=== PATIENT | female | born 1975 | race Caucasian/White ===

== ENCOUNTER 2019-05-01 08:00 | Emergency (ER) | payer OTHER, SELFPAY ==
[2019-05-01 08:10] VITALS: BP 151/96; PULSE 100; RESP 18; TEMP 37.2; O2SAT 99
--- NOTE | 2019-05-01 08:17 | ED.GENADULT ---
HPI - General Adult General Chief complaint: Upper Respiratory Infection Stated complaint: fever coughing Time Seen by Provider: 05/01/19 08:17 Source: patient and RN notes reviewed Mode of arrival: ambulatory Limitations: no limitations History of Present Illness HPI narrative: 43-year-old female with complaints of upper respiratory infection symptoms, fatigue, body aches, cough, and for14 days. Nohemy D with little relief. Symptoms increased over the last 24 hours with fever, chills, and sweats. Davida concerned saying she has been exposed to Influenza and Strep over the past week. Dry cough. Rhinorrhea and nasal congestion. Exacerbating factors of smoke exposure. Low-grade fever this morning of 100.5F, orally with intermittent chills and sweats. No nausea, vomiting, and abdominal pain. Denies chest pain, dyspnea, coughing up blood, difficulty swallowing, jaw pain, dental pain, facial pain, foreign body sensation, and rash. Davida denies being , LMP 04/08/19. Some parts of this dictation were generated by voice recognition software and may contain typographical and/or grammatical inaccuracies. Related Data Allergies Allergy/AdvReac Type Severity Reaction Status Date / Time No Known Allergies Allergy Verified 03/10/19 08:55 Review of Systems Review of Systems: Narrative: CONSTITUTIONAL: Complains of fatigue, fever, chills, sweats. EYES: Denies visual changes, redness, discharge. ENT: Complains of rhinorrhea, congestion. Denies sore throat, otalgia. CARDIOVASCULAR: Denies chest pain, palpitations, edema. RESPIRATORY: Denies dyspnea, wheezing. Complains of dry cough. GASTROINTESTINAL: Denies abdominal pain, nausea, vomiting, diarrhea. GENITOURINARY: Denies dysuria, hematuria, abnormal discharge. SKIN: Denies rash or itching. MUSCULOSKELETAL: Denies acute back pain, joint pain. Complains of myalgia. NEUROLOGIC: Denies numbness or focal weakness. PSYCHIATRIC: Denies anxiety or depression. All systems reviewed & are unremarkable except as noted in HPI and below. [facility] Past Medical History Medical History (Updated 05/01/19 @ 08:44 by CAL Mason) No significant past medical history Surgical History Surgical History (Updated 05/01/19 @ 08:31 by CAL Mason) History of tubal ligation Family History Family History (Updated 05/01/19 @ 08:32 by CAL Mason) Father Hypertension Malignant neoplasm of prostate Mother Asthma Sibling Asthma Social History Social History (Updated 05/01/19 @ 08:33 by CAL Mason) Smoking status: Never smoker Second hand tobacco smoke exposure: Yes Alcohol intake: current Alcohol use details: occasional Substance use: never Living arrangements: with family Occupation/Education: occupation Gender identity (if verbalized by the patient): Female Comments At time of signature, agree with nurse past medical, surgical, social, and family history. There is no relevant family history pertinent to the presenting complaint. Exam Narrative: Exam Narrative: GENERAL: This is a well-nourished, well-developed patient, in no apparent distress. Speaks in full sentences and ambulates with steady gait without dyspnea. HEAD: normocephalic, atraumatic. EYES: PERRL. Sclera clear/white. Vision is grossly intact. EARS: External ears normal, auditory canals clear and without drainage, TMs normal without perforation. Hearing grossly intact. NOSE: External nose normal with no obvious nasal discharge, nares with mild redness and enlarged turbinates, clear rhinorrhea. SINUSES: Mild-moderate tenderness upon palpation to maxillary and frontal sinuses. THROAT: Mucous membranes moist, posterior pharynx with PND, mild erythema, no exudate, and normal tonsils. No drainage, no concern for Peritonsillar abscess. No drooling, trismus, or neck swelling. NECK: Neck supple, non-tender without lymphadenopathy, masses or thyromegaly.
== END 2019-05-01 08:45 | disposition home or self-care (01) ==
PROVIDERS: Emergency Provider Nurse Practitioner Family
DX: J01.00 Acute maxillary sinusitis, unspecified (principal)
CPT/HCPCS: 87081; 87804; 87880; 99213; G0463

== ENCOUNTER 2020-01-18 13:45 | Emergency (ER) | payer OTHER, SELFPAY ==
[2020-01-18 14:00] VITALS: BP 159/97; PULSE 106; RESP 20; TEMP 36.6; O2SAT 100
--- NOTE | 2020-01-18 14:02 | ED.GENADULT ---
HPI - General Adult General Chief complaint: Upper Respiratory Infection Stated complaint: Headache/Stuffy Nose Source: patient Mode of arrival: ambulatory Limitations: no limitations History of Present Illness HPI narrative: 44 y/o female. PMH includes: Sinus issues . Presents to the [facility] clinic today with acute complaints of DONAL[place], as well as increased maxillary facial pressure and nasal congestion/discharge for the past 72 hours. Client reports to get sinus infections at least twice a year , and her symptoms feel the same . She states to have had green nasal discharge, and her nares often get all clogged up . She denies fever, chills. No cough, chest pain, dyspnea. No abdominal pain, N/V/D. She reports she does not think her symptoms have anything to do with the Covid . No additional acute c/o upon PE. Related Data Allergies Allergy/AdvReac Type Severity Reaction Status Date / Time No Known Allergies Allergy Verified 03/10/19 08:55 Review of Systems Review of Systems: Narrative: CONSTITUTIONAL: Denies fever, chills, sweats. EYES: Denies visual changes, redness, discharge. ENT: Positive rhinorrhea, congestion. No sore throat, otalgia. CARDIOVASCULAR: Denies chest pain, palpitations, edema. RESPIRATORY: Denies dyspnea, wheezing, cough GASTROINTESTINAL: Denies abdominal pain, nausea, vomiting, diarrhea. GENITOURINARY: Denies dysuria, hematuria, abnormal discharge SKIN: Denies rash or itching. MUSCULOSKELETAL: Denies acute back pain, joint pain, or myalgia. NEUROLOGIC: Denies numbness, or focal weakness. PSYCHIATRIC: Denies anxiety or depression. [facility] Past Medical History Medical History No significant past medical history Surgical History Surgical History History of tubal ligation Family History Family History Father Hypertension Malignant neoplasm of prostate Mother Asthma Sibling Asthma Social History Social History Smoking status: Never smoker Second hand tobacco smoke exposure: Yes Alcohol intake: current Substance use: never Gender identity (if verbalized by the patient): Female Comments At the time of my signature I agree with nursing past medical history, surgical, social, and family history. There is no relevant family history pertinent to the presenting complaint. Exam Narrative: Exam Narrative: GENERAL: This is a well-nourished, well-developed patient, in no apparent distress. HEAD: normocephalic, atraumatic. EYES: PERRL. Sclera clear/white. Vision is grossly intact. EARS: External ears normal, auditory canals clear and without drainage, TMs normal without perforation. Hearing grossly intact. NOSE: With obvious purulent nasal discharge bilateral nares. No obstruction. No deformity. THROAT: Mucous membranes moist. Posterior pharyngeal erythema, without exudate. No pharyngeal swelling or airway concern. NECK: Neck supple, non-tender without lymphadenopathy, masses or thyromegaly. CARDIOVASCULAR: Regular rate and rhythm without murmurs, gallops, or rubs. RESPIRATORY: Clear to auscultation. Breath sounds equal bilaterally. No wheezes, rales, or rhonchi. GASTROINTESTINAL: Abdomen soft, non-tender, nondistended. Bowel sounds are active. No hepato-splenomegaly, or palpable masses. No guarding. SKIN: warm, intact with no suspicious lesions or rash, good texture and turgor. NEURO: awake, alert, and oriented to person, place and time. There were no obvious focal neurologic abnormalities. Steady gait EXTREMITIES: Normal range of motion. No edema. No calf tenderness. Negative Homans sign bilaterally. BACK: Nontender without deformity or crepitance. No flank tenderness. NEURO: Alert and oriented x4. No focal neurological deficits. Course Course [facility]
== END 2020-01-18 14:37 | disposition home or self-care (01) ==
PROVIDERS: Emergency Provider Nurse Practitioner Adult Health; PCP Nurse Practitioner Family
DX: J01.00 Acute maxillary sinusitis, unspecified (principal)
CPT/HCPCS: 99213; G0463

== ENCOUNTER 2020-01-25 09:45 | Emergency (ER) | payer OTHER, SELFPAY ==
[2020-01-25 10:02] VITALS: BP 152/88; PULSE 99; RESP 16; TEMP 37.1; O2SAT 100
--- NOTE | 2020-01-25 10:52 | ED.URI ---
HPI - URI/Sore Throat General Chief Complaint: Upper Respiratory Infection Stated Complaint: lightheaded, slight back pain Time Seen by Provider: 01/25/20 10:53 Source: patient and RN notes reviewed Mode of arrival: ambulatory Limitations: no limitations History of Present Illness HPI Narrative: 44-year-old female who presents to express care with complaints of increase in sinus pressure especially to her right facial area with dizziness this morning. Patient states that she has been on Augmentin and Flonase since January 17 for sinus infection but continues to feel clogged on right side of face with some post nasal drainage. 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 Lungs are clear to auscultation with SAO2 100% on room air. MD elicited complaint: rhinorrhea and nasal congestion Pertinent past history: sinusitis Onset (ago): day(s) (1) Consistency: intermittent Severity: moderate Pain scale (0-10): 6 Description of mucous: clear Able to tolerate fluids by mouth: Yes Exacerbating factors: exertion and changing head position Relieving factors: nothing Context: other (on antibiotics and flonase for sinus infection) Associated symptoms: rhinorrhea, nasal congestion and other (pain to posterior right back under scapula) Treatments prior to arrival: antibiotics (Augmentin) and other (flonase) Related Data Allergies Allergy/AdvReac Type Severity Reaction Status Date / Time No Known Allergies Allergy Verified 01/25/20 09:56 Review of Systems Review of Systems: Narrative: CONSTITUTIONAL: Denies fever, chills, or sweats. EYES: Denies visual changes, redness, or discharge. ENT: Positive rhinorrhea, congestion,no sore throat, or otalgia. CARDIOVASCULAR: Denies chest pain, palpitations, or edema. RESPIRATORY: Denies cough or acute dyspnea. GASTROINTESTINAL: Denies abdominal pain, nausea, vomiting, or diarrhea. GENITOURINARY: Denies dysuria or hematuria. SKIN: Denies rash or itching. MUSCULOSKELETAL: Positive right posterior back pain under scapula area,no other joint pain, or myalgia. NEUROLOGIC: Denies headache, numbness, or weakness. PSYCHIATRIC: Positive history of anxiety or depression. All systems reviewed & are unremarkable except as noted in HPI and below PMFSH Past Medical History Medical History (Updated 01/25/20 @ 11:57 by Piper Mora NP) Bronchitis UTI (urinary tract infection) Surgical History Surgical History History of tubal ligation Family History Family History Father Hypertension Malignant neoplasm of prostate Mother Asthma Sibling Asthma Social History Social History Smoking status: Never smoker Second hand tobacco smoke exposure: Yes Alcohol intake: current Substance use: never Gender identity (if verbalized by the patient): Female Comments At time of signature, agree with nursing past medical, surgical, social and family history. There is no relevant family history pertinent to the presenting complaint Exam Narrative: Exam Narrative: GENERAL: Well-appearing, well-nourished, and in no acute distress. HEAD: Normocephalic, atraumatic. EYES: PERRLA and EOMI. ENT: Nares red with clear rhinorrhea no epistaxis. Mucous membranes moist. Facial pressure to right side of face. TMs normal with good light reflex, throat pink with no edema postnasal drainage noted no tonsillar enlargement NECK: Supple no lymphadenopathy. CHEST: Clear to auscultation. No respiratory distress. SaO2 100% room air HEART: Regular rate and rhythm. No murmur heard. Normal peripheral pulses. ABDOMEN: Soft, nontender, nondistended, normal active bowel sounds. EXTREMITIES: Normal range of motion.
== END 2020-01-25 11:12 | disposition home or self-care (01) ==
PROVIDERS: Emergency Provider Registered Nurse; PCP Nurse Practitioner Family
DX: R42 Dizziness and giddiness (principal); J01.90 Acute sinusitis, unspecified; S29.012A Strain of muscle and tendon of back wall of thorax, initial encounter; X50.9XXA Other and unspecified overexertion or strenuous movements or postures, initial encounter
CPT/HCPCS: 99213; G0463

== ENCOUNTER 2022-09-06 16:09 | Emergency (ER) | payer OTHER, SELFPAY ==
[2022-09-06 16:15] VITALS: BP 130/89; PULSE 116; RESP 20; TEMP 37.3; O2SAT 100
--- NOTE | 2022-09-06 16:18 | ED.NAVMDI ---
HPI - Nausea/Vomiting/Diarrhea General Chief complaint: Nausea/Vomiting/Diarrhea Stated complaint: Nausea, diarreah, stuffy nose Source: patient and RN notes reviewed Mode of arrival: ambulatory History of Present Illness HPI Narrative: 46-year-old female presents to the [facility] today complaining of nausea and diarrhea. Patient stated about 2 days ago she developed nausea have proceeded with diarrhea. Since then the patient has continued to feel nauseous and having diarrhea about 3 times a day. Patient denies any vomiting but she is afraid to eat food because she believes she will vomit. Patient states she is able to drink water without vomiting. Patient also states feeling like she is having chills, congestion, and sore throat. Patient denies any abdominal pain, chest pain, shortness of breath, cough, or fever. 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 Related Data Allergies Allergy/AdvReac Type Severity Reaction Status Date / Time No Known Allergies Allergy Verified 09/06/22 16:26 Review of Systems Review of Systems: CONSTITUTIONAL: Denies fever. Positive for chills EYES: Denies visual changes, redness, or discharge. ENT: Denies otalgia. Positive for sore throat and congestion. CARDIOVASCULAR: Denies chest pain, palpitations, or edema. RESPIRATORY: Denies cough or dyspnea. GASTROINTESTINAL: Denies abdominal pain or vomiting. Positive for nausea and diarrhea GENITOURINARY: Denies dysuria or hematuria. SKIN: Denies rash or itching. MUSCULOSKELETAL: Denies back pain, joint pain, or myalgia. NEUROLOGIC: Denies headache, numbness, or weakness. Pertinent positives per HPI. [facility] Past Medical History Medical History (Updated 09/06/22 @ 16:44 by Kateryna Bruce APRN) Bronchitis UTI (urinary tract infection) Surgical History Surgical History History of tubal ligation Family History Family History Father Hypertension Malignant neoplasm of prostate Mother Asthma Sibling Asthma Social History Social History Smoking status: Never smoker Second hand tobacco smoke exposure: Yes Alcohol intake: current Alcohol use details: occasional Substance use: never Living arrangements: with family Occupation/Education: occupation Gender identity (if verbalized by the patient): Female Comments At the time of my signature, I reviewed and agree with the nursing past medical, surgical, social, and family history. There is no relevant family history pertinent to the patient complaint. Exam Narrative: GENERAL: This is a well-nourished, well-developed patient, in no apparent distress. HEAD: normocephalic, atraumatic. EYES: Sclera clear/white. Vision is grossly intact. EARS: External ears normal, auditory canals clear and without drainage, TMs normal without perforation. Hearing grossly intact. NOSE: External nose normal with no obvious nasal discharge, nares without redness, no rhinorrhea. THROAT: Mucous membranes moist, posterior pharynx clear. NECK: Neck supple, non-tender without lymphadenopathy, masses or thyromegaly. CARDIOVASCULAR: Regular rate and rhythm without murmurs, gallops, or rubs. RESPIRATORY: Clear to auscultation. Breath sounds equal bilaterally. No wheezes, rales, or rhonchi. GASTROINTESTINAL: Abdomen soft, non-tender, nondistended. Bowel sounds are active. No hepato-splenomegaly, or palpable masses. No guarding. SKIN: warm, intact with no suspicious lesions or rash, good texture and turgor. NEURO: awake, alert, and oriented to person, place and time. There were no obvious focal neurologic abnormalities. EXTREMITIES: No clubbing, cyanosis, or edema. No joint tendern
== END 2022-09-06 16:45 | disposition home or self-care (01) ==
PROVIDERS: Emergency Provider Nurse Practitioner Family; PCP Nurse Practitioner Family
DX: B34.9 Viral infection, unspecified (principal)
CPT/HCPCS: 99213; G0463

== ENCOUNTER 2023-02-18 17:24 | Emergency (ER) | payer OTHER, SELFPAY ==
[2023-02-18 17:32] VITALS: BP 133/90; PULSE 107; RESP 18; TEMP 37.3; O2SAT 100
--- NOTE | 2023-02-18 18:08 | ED.URI ---
HPI - URI/Sore Throat General Chief Complaint: Upper Respiratory Infection Stated Complaint: headache/fever/aches Time Seen by Provider: 02/18/23 18:00 Source: patient Mode of arrival: ambulatory Limitations: no limitations History of Present Illness HPI Narrative: 47-year-old female who presents to [facility] with complaints of have generalized body aches,fevers up to 102.1F, headaches for the pst 2 days with feeling hot and then freezing. Patient reports that she has taken Tylenol and Ibuprofen for her symptoms. Patient reports no acute cough or any dyspnea, respirations even and nonlabored with no tachypnea, SAO2 100% on room air. MD elicited complaint: fever, rhinorrhea and other (body aches, headaches, chills and sweats) Onset (ago): day(s) (day 2) Severity: moderate Pain scale (0-10): 7 Able to tolerate fluids by mouth: Yes Treatments prior to arrival: acetaminophen and ibuprofen Related Data Home Medications Medication Instructions Recorded Confirmed No Home Medications 02/18/23 02/18/23 Allergies Allergy/AdvReac Type Severity Reaction Status Date / Time No Known Allergies Allergy Verified 02/18/23 17:32 Review of Systems Review of Systems: CONSTITUTIONAL: Reports malaise, chills, sweats, or fever. EYES: Denies visual changes, redness, or discharge. ENT: Reports rhinorrhea, congestion,no sinus pain, no otalgia and no sore throat. CARDIOVASCULAR: Denies chest pain, palpitations, or edema. RESPIRATORY: Reports occasional cough.? Denies dyspnea. GASTROINTESTINAL: Denies abdominal pain, nausea, vomiting, diarrhea SKIN: Denies rash or itching. MUSCULOSKELETAL:reports myalgia. NEUROLOGIC: reports headache. All systems reviewed & are unremarkable except as noted in HPI and below PMFSH Past Medical History Medical History Bronchitis UTI (urinary tract infection) Surgical History Surgical History History of tubal ligation Family History Family History Father Hypertension Malignant neoplasm of prostate Mother Asthma Sibling Asthma Social History Social History Smoking status: Never smoker Second hand tobacco smoke exposure: Yes Alcohol intake: current Alcohol use details: occasional Substance use: never Living arrangements: with family Occupation/Education: occupation Gender identity (if verbalized by the patient): Female Comments At time of signature, agree with nursing past medical, surgical, social and family history. There is no relevant family history pertinent to the presenting complaint Exam Narrative: GENERAL: Well-appearing, well-nourished, and in no acute distress. HEAD: Normocephalic EYES: PERRLA, conjunctivae clear ENT: Nares clear, turbinates edematous and erythematous, clear discharge. Mucous membranes moist. TM pearly harry with dull light reflex bilaterally; no tragal tenderness. Oropharynx erythematous without lesions. Tonsils not enlarged and without exudate, no drooling, no hoarseness, no trismus, uvula midline.post nasal drainage NECK: Supple. No lymphadenopathy CHEST: Clear to auscultation, breath sounds equal. No wheezing, rhonchi, rales, or stridor. No respiratory distress, speaks in full sentences. coughSAO2 100% on room air HEART: Regular rate and rhythm. No murmur heard. SKIN: Warm, dry, no rash. NEURO: Alert and oriented x3. PSYCH: Normal mood and affect Course Course Emergency Course: Patient is aware of diagnosis, understands and agrees to treatment plan.? Anticipatory guidance given.? Patient agrees to follow-up as directed and is aware of reasons to seek care at the emergency department. Portions of this record may have been created with voice recognition software Level of Care: Exp
== END 2023-02-18 18:30 | disposition home or self-care (01) ==
PROVIDERS: Emergency Provider Registered Nurse; PCP Nurse Practitioner Family
DX: U07.1 COVID-19 (principal)
CPT/HCPCS: 87426; 87804; 99213; C9803; G0463

== ENCOUNTER 2024-01-13 14:38 | Emergency (ER) | payer OTHER, SELFPAY ==
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
[2024-01-13 14:59] VITALS: BP 160/109; PULSE 95; RESP 17; TEMP 37.1; O2SAT 100
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
[2024-01-13 16:30] VITALS: BP 140/90
== END 2024-01-13 16:50 | disposition home or self-care (01) ==
PROVIDERS: Emergency Provider Nurse Practitioner Family; PCP Nurse Practitioner Family
DX: S80.02XA Contusion of left knee, initial encounter (principal); S63.636A Sprain of interphalangeal joint of right little finger, initial encounter; V43.62XA Car passenger injured in collision with other type car in traffic accident, initial encounter
CPT/HCPCS: 29130; 73130; 99213; G0463

== ENCOUNTER 2024-08-28 12:59 | Emergency (ER) | payer OTHER, SELFPAY ==
--- OUTSIDE RECORDS SUMMARY | 2024-08-28 13:06 | XMS_ITS | Clinical Summary ---
Author Organization [facility] Address [address] [place] [address] Care Team Providers Care Piece Dyeing Machine Tender Name Role Phone Elida Batres NP Primary Care Provider [phone] Allergies Active Allergy Reactions Criticality Noted Date Comments Venom-Honey Bee Medications hydrOXYzine (ATARAX) 25 mg tablet Take 1 tablet (25 mg total) by mouth 4 (four) times a day as needed for anxiety. 20 tablet 7 Active Additional Information Patient not taking.Reported on 08/23/2024 hydroCHLOROthia zide (HYDRODIURIL) 25 mg tablet Take 1 tablet (25 mg total) by mouth daily Active EPINEPHrine (EpiPen 2-Cruzito) 0.3 mg/0.3 mL auto-injection syringe Take 1 auto by injection route. 0 Active albuterol HFA (PROVENTIL HFA,VENTOLIN HFA,PROAIR HFA) 90 mcg/actuation inhaler TAKE 2 INHALATIONS NEEDED (4-6 HOURS) Active Active Problems No known active problems Encounters Date Type Department Care Team Description 08/23/2024 9:45 AM CDT Office Visit [facility] [place] [address] [place] [address] Jess Garcia NP Physical exam (Primary Dx) from Last 3 Months Immunizations Immunization Administration Dates Next Due PPD TEST 05/01/2018 Surgical History Surgery Date Site/Laterality Comments TUBAL LIGATION Medical History Medical History Date Comments Heart murmur Fibrocystic breast Family History Medical History Relation Name Comments Breast cancer Maternal Grandmother Relation Name Status Comments Maternal Grandmother Social History Tobacco Use Types Packs/Day Years Used Date Smoking Tobacco: Never Smokeless Tobacco: Never Tobacco Cessation:Counseling Given: Not Answered Personal Safety Answer Date Recorded Have you ever been in or are you currently in a harmful physical or emotional relationship or is someone making you feel afraid or unsafe? 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 Gender Identity Not on file Sexual Orientation Not on file Obstetrics History Para Term AB IAB SAB Ectopic Multiple Livin g Live Births 3 3 3 Date Outcome GA Total Labor Labor/2nd/3rd Weight Sex Type Anes PTL Tasneem A1 A5 Name Clin Term Term Term Last Filed Vital Signs Vital Sign Reading Time Taken Comments Blood Pressure 132/98 08/23/2024 9:44 AM CDT Pulse 122 08/23/2024 9:44 AM CDT Temperature 36.3 C (97.4 F) 08/23/2024 9:44 AM CDT Respiratory Rate 16 08/23/2024 9:44 AM CDT Oxygen Saturation 99% 08/23/2024 9:44 AM CDT Inhaled Oxygen Concentration - - Weight 56.7 kg (125 lb) 08/23/2024 9:44 AM CDT Height 165.1 cm (5' 5) 08/23/2024 9:44 AM CDT Body Mass Index 20.8 08/23/2024 9:44 AM CDT Plan of Treatment Health Maintenance Due Date Last Done Comments Colon Cancer Screening-Colonoscopy 1975 Depression Screening 1975 Hepatitis C Screening 1975 Hepatitis B Screening 11/19/1991 Regular Well Visit/Exam 18-64 11/19/1991 Breast Cancer Screening-Mammogram 04/29/2020 04/30/2019, 08/09/2012 Zoster Vaccine (1 of 2) 11/19/2023 Influenza Vaccine (#1) 2024 DTaP/Tdap/Td Vaccine (2 - Td or Tdap) 02/26/2034 02/27/2024 Pneumococcal vaccine <65 Aged Out No longer eligible based on patient's age to complete this topic Procedures Procedure Name Priority Date/Time Associated Diagnosis Comments SCREENING MAMMOGRAM BILATERAL W MCKENNA Schedule Routine, Read Routine (OP Routine) 04/30/2019 2:05 PM CDT Encounter for screening mammogram for malignant neoplasm of breast from Last 3 Months or Most Recently Relevant to Health Maintenance Results * Screening Mammogram Bilateral W Mckenna (04/30/2019 2:05 PM CDT) Anatomical Region Laterality Modality Breast Bilateral Mammography 05/07/2019 2:27 PM CDT Impressions 05/07/2019 2:53 PM CDT No evidence of malignancy. Follow-up in 1 year with screening mammography is recommended. BI-RADS: 1 - Negative. Electronically signed by: James Em M.D. Narrative 05/07/2019 2:53 PM CDT EXAMINATION: SCREENING MAMMOGRAM BILATERAL W MCKENNA ORDERING HEALTHCARE PROVIDER: CRISTY VIRK HISTORY: Routine screening mammography. COMPARISON: 08/09/2012 through 08/04/2011 TECHNIQUE: CC and MLO views of the bilateral breasts were obtained with digital technique using breast tomosynthesis with C view. Computer aided detection was utilized. FINDINGS: There is scattered fibroglandular tissue There are no suspicious masses, calcifications, or architectural distortion. Cristy Virk MD IMG MAMMO PROCEDURES Fin al Result from Last 3 Months or Most Recently Relevant to Health Maintenance Insurance [employer] Care Teams Piece Dyeing Machine Tender Relationship Specialty Start Date End Date Batres, Elida Batool, HAND WINDER [address] [place] [id number] PCP - General Nurse Practitioner 02/26/24
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
--- OUTSIDE RECORDS SUMMARY | 2024-08-28 13:06 | XMS_ITS | Patient Health Record ---
Author Organization [facility] Address [address] [place] [address] Care Team Providers Care Manager Nicu Name Role Phone JENNIFER GU Primary Care Provider Unavailabl e Allergies No Known Allergies Reason For Referral No Information Social History Tobacco Use: Social History Observation Description Date Details (start date - stop date) Never Smoker NA - NA Tobacco Use/Smoking Question Answer Notes Are you a nonsmoker Plan Of Treatment No Information Insurance Providers Payer Name Payer Address Payer Phone Subscriber Number Group Number Insured Name Patient Relationship to Insured Coverage Start Date Coverage End Date [facility] [employer] [address] [place] [address] [id number] Davida Augustin Self - patient is the insured Medical (General) History Surgical History Surgery Date(Month/Year)
--- OUTSIDE RECORDS SUMMARY | 2024-08-28 13:07 | XMS_ITS | Patient Health Record ---
Author Organization [facility] Address [address] [place] [address] Care Team Providers Care Junior Linux Systems Administrator Name Role Phone DAMIEN JOY Unavailable [phone] DAVIDA TEE Unavailable [phone] B[place] PA Unavailable [phone] Reason For Referral Reason [place] - [place] VISIT - APT 01/13/2024 [facility] Medical [facility] [place] [address] [place] [address] P: Diagnosis 1 Follow up (Z09) Referred Provider Specialty Family Medic ine General Notes CL CrRenaeJeane 1 03/14/2023 01:25:52 PM >Type of service: UC , Is member in [facility] (Y/N):N, If Y, was [facility] offered, Order (Y/N), Ordering Provider: N, Preferred Provider (Y/N): N, Facility/Provider Name: , [facility] [place], [facility] Number:N/A, Provider Address/Phone/Fax: , [address] [place] [address], [phone], Appointment Date/Time: 01/13/2024 , If preferred provider charges over the usual rates, member is willing to pay the amount over fair rate: (Y/N), If N, member is willing to go elsewhere., Notes: MM AWARE TO PRESENT MM ID Referral Priority Routine Reason [place]- UC Visit (Self G uided_ 01/13/2024 @ 3:30PM [facility] / [address] [place] [address] / Diagnosis 1 Encounter to [facility] (Z76.89) Referred Provider Specialty Emergency Me poncho General Notes JOSEFINA Candy Palacio 12/16 03:55:25 PM >1.Type of service: UC Visit (Self Guided_ 01/13/2024 @ 3:30PM, , 2. Is member in [facility] (Y/N): N, , If Y, was [facility] offered N/A, , 2.Order (Y/N), Ordering Provider: , , 3. Preferred Provider (Y/N):, , 4. Facility/Provider Name: (If no, input N/A) [facility] / Dr. Jenifer gonzalez, , 5. NPI Number: (If no, input N/A) , , 6. Provider Address/Phone/Fax: (if none, input (N/A) , , 7. Appointment Date/Time: (if none, input TBD and availability day/time) 01/13/2024 @ 3:30PM, , 8. If preferred provider charges over the usual rates, member is willing to pay the amount over fair rate: (Y/N), , If N, member is willing to go elsewhere., , 9.Notes: MM submitted SCB w/ above details. Called MM- no answer, LVM Referral Priority Routine Encounters Encounter Location Date Provider Diagnosis [facility] [address] [place] [address] 01/13/2024 BARRINGTON PA [facility] [address] [place] [address] 05/15/2024 DAVIDA TEE [facility] [address] [place] [address] 01/13/2024 [facility] [address] ([address]) [place] [address] 05/15/2024 [facility] [address] [place] [address] 03/07/2024 [facility] [address] ([address]) [place] [address] 02/27/2024 [facility] [address] [place] [address] 02/27/2024 DAMIEN JOY [facility] [address] [place] [address] 01/13/2024 DAMIEN JOY Assessments Encounter Date Diagnosis (ICD Code) Assessment Notes Treatment Notes Treatment Clinical Notes Section Notes 05/15/2024 Other Called pt, no answer. Called pt another time, no answer. Unable to leave VM due to full VM box. PCT to send message to pt to call back when available. I did not speak to pt. VBP not completed. Plan Of Treatment No Information Insurance Providers Payer Name Payer Address Payer Phone Subscriber Number Group Number Insured Name Patient Relationship to Insured Coverage Start Date Coverage End Date [facility] [id number] [place] [id number] Davida Augustin Self - patient is the insured 4 5
--- OUTSIDE RECORDS SUMMARY | 2024-08-28 13:07 | XMS_ITS | Clinical Summary ---
Author Organization [facility] Address [address] [place] [address] Phone Care Team Providers Care Central Supply Tech Name Role Phone Batres, Elida WAY, BOOK CLEANER Primary Care Provider [phone] Social History Tobacco Use Types Packs/Day Years Used Date Smoking Tobacco: Never Assessed Comments Unknown Sex and Gender Information Value Date Recorded Sex Assigned at Not on file Legal Sex Female 11:01 PM CDT Gender Identity Not on file Sexual Orientation Not on file Plan of Treatment Health Maintenance Due Date Last Done Comments Hepatitis C Virus (HCV) Screening 1975 TdaP Immunization 1975 Hepatitis B Immunization (1 of 3 - 19+ 3-dose series) 1992 Pap Smear 1994 Cervical Cancer Screening (CCS) 11/19/2003 HPV/Cotest 11/19/2003 Cologuard 2018 Colonoscopy 2018 Colorectal Cancer Screening 2018 Immunochemical Fecal Occult Blood 2018 SARS-COV-2 Immunization ( season) 2023 Pneumococcal Immunization (5 0+ years) (1 of 1 - PCV) 11/19/2023 Zoster Immunization (1 of 2) 11/19/2023 Influenza Immunization (#1) 2024 Respiratory Syncytial Virus (RSV) Immunization (Adult) (1 - 1-dose 75+ series) 2048 Human Papillomavirus (HPV) Immunization Aged Out No longer eligible b ased on patient's age to complete this topic Meningococcal Immunization (ACWY) Aged Out No longer eligible based on patient's age to complete this topic Rotavirus Immunization Aged Out No lo nger eligible based on patient's age to complete this topic [facility] Care Teams Central Supply Tech Relationship Specialty Start Date End Date Gisel, SEAMUS Marrero, BOOK CLEANER [address] [place] [address] PCP - General Family Medicine 11/11/20
--- OUTSIDE RECORDS SUMMARY | 2024-08-28 13:07 | XMS_ITS | Data Portability ---
Author Organization [facility] Address [address] [place] [address] Care Team Providers Care Gas Main Fitter Name Role Phone ELIDA GU Primary Care Provider Unavailabl e Assessment No assessment recorded. Plan of Treatment Reminders Order Date Submit Date Provider Last Modified By Organization Details Last Modified Time Details Appointments None recorded . Lab TSH, ultra-se nsitive, serum 2022 023 [facility], [address], [place], [address], 3 16:26:46 CMP, serum or plasma 2022 023 [place], [address], [address], [place], [address], 3 16:26:46 lipid panel, serum 2022 023 [facility], [address], [place], [address], 3 16:26:46 CBC 2022 023 [facility], [address], [place], [address], 3 16:26:45 Referral None recorded . Procedures suture removal (PROC) 2024 025 carrie Gu, [address], [place], [address], 5 09:04:08 Surgeries None recorded . Imaging XR, hip + pelvis, unilater al, 2 or 3 view [address], 1 [facility] , [place], [address], 3 14:54:03 Medication Orders hydrochl orothiaz maribel [address] [id number], [address], [place], [place], [id number], 5 12:13:33 hydrochl orothiaz maribel 25 mg tablet 2022 023 [facility] #[id number], [address] [place], [address], 5 11:54:34 amoxicil edna 875 mg-potas sium clavulan ate 125 mg tablet 2020 021 [facility] #[id number], [address] [place], [address], 5 11:54:45 Medrol (Cruzito) 4 mg tablets in a dose pack [address]/Pharmacy #[id number], [address] [place], [address], 3 16:02:40 Patient TargetsNo targets recorded. Patient Instructions Encounter Date Encounter Id Patient Instructions Last Modified By Organization Details Last Modified Time 10/02/2020 [id number] Acute Sinusitis: Care Instructions Not available 10/02/2020 13:10:24 Take all antibiotics prescribed to you. If any fever or increase in pain, call/return to office. Not available 10/02/2020 13:10:58 04/26/2022 [id number] A healthy lifestyle: care instructions Not available 04/26/2022 21:58:30 learning about high blood pressure Not available 04/26/2022 16:26:32 Increase intake of fresh fruits, and vegetables. Avoid packaged foods and fast foods. Follow a low salt diet, drink at least 8-10 8oz glasses of water a day, exercise most days of the week. Take all medications as prescribed. Keep appointments with PCP and all specialists. Not available 04/26/2022 22:01:26 Plan pending imaging results. f/u 6 months DWP barriers to care: none Not available 04/26/2022 22:01:50 02/27/2024 [id number] tetanus and diphtheria booster: care instructions Not available 02/27/2024 18:12:42 03/06/2024 [id number] learning about high blood pressure Not available 03/06/2024 12:13:27 Wash with mild soap, pat dry and apply aquaphor to dry skin. Not available 03/06/2024 12:47:38 keep f/u as planned Not available 03/06/2024 12:47:42 03/08/2024 [id number] Wound care as advised. Not available 03/08/2024 14:03:30 keep f/u as planned Not available 03/08/2024 14:03:24 Reason for Referral None Reported. Results Created Date Observation Date Name Description Value Unit Range Abnormal Flag Note LastModifiedBy Organization Detail LastModifiedTime 01/14/20 24 01/13/2024 XR, hand, 3 or more view No observ ation record ed. [email or web address] [facility] [address], [place], [address], 01/17/2024 15:01:41 Result Notes None recorded. Problems Name Problem SNOMED Code Status Onset Date Resolution Date Notes Provider Name and Address Organization Details Recorded Time Liver enzymes level above reference range 355510321 Active 2019 liver enzymes raised, avoid alcohol and tylenol, would also suggest additional monitoring and testing if symptomati c, Elida Gu APN, NEWSPAPER REPORTER-C Attn: Gus g [facility], [place], [address], [facility] 0 13:23:43 Hyperlipid emia 36772410 Active 2019 cholestero l elevated, diet changes advised-re duce fried fatty foods, increase fiber, increase veggies and activity level Elida Gu APN, NEWSPAPER REPORTER-C Attn: Accountin g,[address] [facility], [place], [address], [facility] 0 13:24:10 Overweight 020286599 Active 2020 Elida Gu APN, NEWSPAPER REPORTER-C Attn: Accountin g,[address] [facility], [place], [address], [facility] 1 16:29:45 Essential hypertensi on 22022923 Active 2020 Elida Gu APN, NEWSPAPER REPORTER-C Attn: Darreneugene g,[address] [facility], [place], [address], [facility] 1 16:33:39 Anxiety 15680597 Active Jerri Funez MA [place], [facility] 5 15:17:13 Problem Notes None recorded. Procedures Surgical History Date Name Laterality Status Provider Name and Address Organization Details Recorded Time 5 Suture/Staple removal completed Elida Gu APN, NEWSPAPER REPORTER-C Attn: Accounting,[address] [facility], [place], [address], [facility] 03/08/2024 13:54:57 5 Suture/Staple removal completed Elida Gu APN, NEWSPAPER REPORTER-C Attn: Accounting,[address] [facility], [place], [address], [facility] 03/06/2024 12:12:02 8 Date of Last Pap Smear completed Dorene Ravin [facility] 09/13/2017 14:00:46 3 Most Recent Mammogram completed Jerri Funez MA [facility] 09/25/2014 15:17:13 9 Tubal Ligation completed Jerri Funez MA [facility] 09/25/2014 15:17:13 Imaging Results None recorded. Procedure Notes None recorded. Medical Equipment None Reported. Allergies Allergen ID Allergen Name Allergen Category Reaction Reaction Severity Criticality Documentation Date Start Date Code Code System Note Provider Name and Address Organization Details Recorded Time 900697 wasp venoms environme nt anaphylax is Not available Not available 04/26/2022 [id number] RxNorm Marielle Bacon quirino, [facility] SI 16:02:25 No known drug allergies Medications Name Sig Start Date Stop Date Status Note LastModified by Organization Details LastModified Time amoxicill in 500 mg capsule Take 1 capsule every 8 hours by oral route for 10 days. 10/02 completed Not Available Not Available Not Available citalopra m 40 mg tablet 05/17 completed Not Available Not Available Not Available azithromy bonnie 250 mg tablet TAKE 2 TABLETS BY MOUTH TODAY, THEN TAKE 1 TABLET DAILY FOR 4 DAYS 04/26 completed Not Available Not Available Not Available Tubersol 5 tub. unit/0.1 mL intraderm al injection solution Administ er .1ml interder octavia 04/26 completed Not Available Not Available Not Available clonazepa m 0.5 mg tablet 05/17 completed Not Available Not Available Not Available benzonata te 100 mg capsule TAKE 1 CAPSULE BY MOUTH THREE TIMES A DAY 04/26 completed Not Available Not Available Not Available hydrochlo rothiazid e 25 mg tablet TAKE 1 TABLET BY MOUTH EVERY DAY active Not Available Not Available No t Available ibuprofen 600 mg tablet active Not Available Not Available Not Available methylpre dnisolone 4 mg tablets in a dose pack TAKE 6 TABLETS ON DAY 1 DIRECTED ON PACKAGE AND DECREASE BY 1 TAB EACH DAY FOR A TOTAL OF 6 DAYS 04/26 completed Not Available Not Available Not Available albuterol sulfate HFA 90 mcg/actua tion aerosol inhaler TAKE 2 INHALATI ONS NEEDED (4-6 HOURS) active Not Available Not Available No t Available fluticaso ne propionat e 50 mcg/actua tion nasal spray,escobar pension 1 SQUIRT IN THE NOSTRILS TWICE A DAY 1 SQUIRT IN EACH NOSTRIL TWICE DAILY FOR 14 DAYS 04/26 completed Not Available Not Available Not Available amoxicill in 875 mg-potass ium clavulana te 125 mg tablet TAKE 1 TABLET BY MOUTH EVERY 12 HOURS FOR 10 DAYS 03/06 completed Not Available Not Available Not Available Klonopin 05/17 completed Not Available Not Available Not Available EpiPen 2-Cruzito 0.3 mg/0.3 mL injection , auto-inje ctor Take 1 auto by injectio n route. 2019 active Not Available Not Available Not Avai lable Vitals Date Recorded Heart rate Respiratory rate Body temperature Systolic And Diastolic Provider Name and Address Organization Details Last Updated DateTime 02/27/2024 76 /min 16 /min 97.5 [degF] 148/94 mm[Hg] Nemo Juárez LPN [facility] 5 17:25:43 Date Recorded Body height Body mass index (BMI) Body weight Oxygen saturation Oxygen saturation in Arterial blood by Pulse oximetry Respiratory rate Body temperature Heart rate Systolic And Diastolic Provider Name and Address Organization Details Last Updated DateTime 5 167.64 cm 21.8 kg/m2 37614.9 7 g 99 % 99 % 16 /min 97.5 [degF] 54 /min 146/100 mm[Hg] Marielle Bacon Suzette [facility] 5 11:56:51 Date Recorded Body height Body mass index (BMI) Body weight Oxygen saturation Oxygen saturation in Arterial blood by Pulse oximetry Respiratory rate Body temperature Heart rate Systolic And Diastolic Provider Name and Address Organization Details Last Updated DateTime 5 167.64 cm 22.1 kg/m2 64767.1 5 g 99 % 99 % 16 /min 98 [degF] 70 /min 130/88 mm[Hg] Marielle Bacon Suzette [facility] 5 13:52:21 Date Recorded Body height Body mass index (BMI) Body weight Oxygen saturation Oxygen saturation in Arterial blood by Pulse oximetry Heart rate Respiratory rate Body temperature Systolic And Diastolic Provider Name and Address Organization Details Last Updated DateTime 3 167.64 cm 25.7 kg/m2 62274.1 9 g 96 % 96 % 98 /min 16 /min 97.5 [degF] 130/96 mm[Hg] Marielle Bacon [facility] 3 16:05:55 Date Recorded Body height Provider Name an d Address Organization Details Last Updated DateTime 10/02/2020 167.64 cm Codi Colmenares [place] - [facility] 10/03/19 21 12:57:47 Social History Question Answer Notes LastModified by Organizat ion Details LastModified Time Tobacco Smoking Status Never Smoker Jerri Funez MA [place], [place] [facility] 09/25/2014 15:17:13 Do You Have An Advance Directive? No [email or web address] Information not available 09/06/2017 Are You Blind Or Do You Have Difficulty Seeing? No Glasses [email or web address] Information not available 10/02/2020 Is Blood Transfusion Acceptable In An Emergency? Yes Information not available 09/25/2014 What Is Your Level Of Caffeine Consumption? Moderate Information not available 04/26/2022 How Much Tobacco Do You Chew? None Information not available 09/25/2014 In The 14 Days Before Symptom Onset, Have You Had Close Contact With A Laboratory-confir med COVID-19 While That Case Was Ill? No Information not available 05/30/2019 In The 14 Days Before Symptom Onset, Have You Had Close Contact With A Person Who Is Under Investigation For COVID-19 While That Person Was Ill? No Information not available 05/30/2019 Have You Been To An Area Known To Be High Risk For COVID-19? No Information not available 05/30/2019 Are You Deaf Or Do You Have Serious Difficulty Hearing? No Information not available 05/14/2020 What Type Of Diet Are You Following? REGULAR Watching What She Eats [email or web address] Information not available 04/26/2022 Which Illicit Or Recreational Drugs Have You Used? Hollis henry Information not available 05/17/2016 Education 2 Year College Information not available 09/25/2014 Are There Any Guns Present In Your Home? No Information not available 05/30/2019 Hard Of Hearing Or Deaf In One Or Both Ears? No Information not available 05/30/2019 Legally Blind In One Or Both Eyes? No Information no t available 05/30/2019 Live Alone Or With Others? With Others Information not available 09/25/2014 Marital Status Informatio n not available 05/30/2019 What Was The Date Of Your Most Recent Tobacco Screening? 03/08/2024 Information not available 03/08/2024 How Many Children Do You Have? 3 Information not available 09/25/2014 Performs Monthly Self-breast Exam? No Information no t available 09/25/2014 Do You Use Protection During Sex? No [email or web address] Information not available 05/17/2016 What Is Your Relationship Status? Information not available 09/25/2014 Do You Use Your Seat Belt Or Car Seat Routinely? Yes Information not available 05/14/2020 Seat Belts Used Routinely Yes Information not available 09/25/2014 Are You Sexually Active? Yes Information not available 09/25/2014 Smoke Alarm In Home Yes Information not available 05/30/2019 Do You Have Smoke And Carbon Monoxide Detectors In Your Home? Yes Information not available 05/14/2020 Are You Passively Exposed To Smoke? No Information no t available 05/14/2020 How Much Tobacco Do You Smoke? No Information not available 09/25/2014 General Stress Level Low Information not available 05/30/2019 Do You Use Sunscreen Routinely? No Information not available 09/25/2014 Has Tobacco Cessation Counseling Been Provided? Yes [email or web address] Information not available 04/26/2022 On What Date Was Tobacco Cessation Counseling Provided? 03/08/2024 Information not available 03/08/2024 Sex: Female Functional Status Question Answer Note LastModified by Organizat ion Details LastModified Time Do you use any illicit or recreational drugs? No Information not available 05/14/2020 Do you or have you ever used any other forms of tobacco or nicotine? No Information not available 05/14/2020 What is your level of alcohol consumption? Occasional Information not available 09/25/2014 Do you or have you ever used smokeless tobacco? Never used smokeless tobacco [email or web address] Information not available 04/25/2019 Are you currently employed? Yes Information not available 09/25/2014 Are you able to care for yourself? 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 Never used electronic cigarettes Information not available 04/25/2019 What is your exercise level? Moderate [email or web address] Information not available 04/26/2022 Mental Status Question Answer Note LastModified by Organization D etails LastModified Time Do you feel stressed (tense, restless, nervous, or anxious, or unable to sleep at night)? [id number] Information not available 05/14/2020 Family History Relationship Description Onset Age of this Age Resolved Age Notes LastModified by Organization Details LastModified Time Father Hypertensive disorder [email or web address] Not available 2014 17:16:49 Father Hypercholest erolemia rreiter Not available 2014 17:16:49 Father Malignant neoplasm of prostate [email or web address] Not available 04/24 15:49:54 Paternal Grandfather Myocardial infarction [email or web address] Not available 10/02 17:16:49 Paternal Grandmother Hypercholest erolemia rreiter Not available 2014 17:16:49 Paternal Grandmother Hypercholest erolemia rreiter Not available 2014 17:16:49 Maternal Grandmother Malignant neoplasm of ovary rreiter Not available 2014 17:16:49 Maternal Grandmother Malignant tumor of breast rreiter Not available 2014 17:16:49 Maternal Grandmother Hypertensive disorder rreiter Not available 2014 17:16:49 Brother Hypertensive disorder rreiter Not available 2014 17:16:49 Mother Hypertensive disorder [email or web address] Not available 2016 17:04:08 Medical History Condition Response Coronary Artery Disease N Other N Atrial Fibrillation N High Blood Pressure Y Breast Cancer N Lung Disease N Depression N COPD N Blood Clots N Breast Problem N Anesthesia Complications N Headaches/Migraines N Anxiety Disorder Y Muscle, Joint, or Bone Problems N Arthritis N Infertility N Polyps N Acid Reflux (GERD) N Cancer N Stroke N ADHD N Endometriosis N High Cholesterol N Liver Disease N Fibromyalgia N Schizophrenia N Headaches N Kidney Disease N Heart Problems N Thyroid Problems N Kidney or Bladder Problems N GI Problems N Acne N Eating Disorder N Skin Problems N Anemia N Heart Attack (SD) N Diabetes N Ovarian Cancer N Blood Transfusions N Seizures/Epilepsy N Abuse/Domestic Violence N Asthma N Allergies N Substance Abuse N Hepatitis N Heart Disease N Pre-Eclampsia N Hypertension N Heart Failure N Osteoporosis N Gynecological History Statement/Question Response Abnormal Pap N Flow Moderate Date of LMP 05/15/2021 On BCP's at Conception? N STIs/STDs N HPV Vaccine N Most Recent Mammogram 08/09/2012 Age at Menarche 11 Current Control Method Tubal Ligat ion Age at First Child 18 Frequency of Cycle (Q days) 30 Sexually Active? Y Menses Monthly Y Date of Last Pap Smear 09/06/2017 Sexual Problems? N LMP Approximate Obstetrics History GPAL:G 4 P 3 0 1 3 Type Value Multiple Births 0 Full Term 3 Induced 0 Spontaneous 1 Premature 0 Living 3 Ectopics 0 Total 4 Immunizations Vaccine Type Date Status Note Provider Name and Address Organization Details Recorded Time Influenza, split virus, quadrivalent, preservative 01/16/20 20 cancelled patient objection Elida Gu APN, NEWSPAPER REPORTER-C Attn: Accounting,[address] [facility], [place], [address], [facility] 01/16/2020 14:18:15 Tdap 02/26/19 25 completed Codi Colmenares [place], [place] [facility] 02/27/2024 17:56:50 Past Encounters Encounter ID Performer Location Encounter Start Date Encounter Closed Date Diagnosis/Indication Diagnosis SNOMED-CT Code Diagnosis ICD10 Code Diagnosis Note [id number] MD Tami Carpio (BOOM PUMP OPERATOR) [address] [place] [address] 09/25/2014 14:58:47 09/25/2014 16:04:12 Gynecologic examination 02773378 Normal female exam. Last pap done 07/31/12 was normal with negative hr-HPV. Therefore, no pap needed. Venereal d isease screening 011873525 RTO one week for results. Screening for malignant neoplasm of breast 394925768 [id number] MD Tami Carpio (BOOM PUMP OPERATOR) [address] [place] [address] 10/02/2014 17:04:08 10/03/2014 15:38:42 Gynecologic examination 75406561 Cholestero l profile was excellent, dwp. Glucose and thyroid were normal, dwp. RTO PRN + 1yr. Venereal d isease screening 053520039 Vaginal culture was negative for GC, Chlam, TV, yeast, and BV, dwp. STD panel was also completely negative. Individual tests d/w pt. [id number] MD Olga Carpiohalto (BOOM PUMP OPERATOR) [address] [place] [address] 05/17/2016 16:54:50 05/19/2016 09:45:10 Gynecologic examination 42807848 Z01.419 Last pap done 08/02/12 was negative with negative hr-HPV. Therefore, no pap needed. Venereal d isease screening 499686304 Z11.3 RTO one week for results. Screening for malignant neoplasm of breast 729901418 Z12.31 [id number] MD Olga Carpiohalto (BOOM PUMP OPERATOR) [address] [place] [address] 05/26/2016 17:27:44 06/11/2016 09:51:48 Venereal disease screening 382269468 Z11.3 Vaginal culture was negative for gonorrhea, chlamydia, and trichomona s, dwp. STD panel was also completely negative. Individual test results dwp. [id number] MD Tami Carpio (BOOM PUMP OPERATOR) [address] [place] [address] 09/06/2017 13:47:51 09/09/2017 09:34:22 Gynecologic examination 23526567 Z01.419 Last pap done 08/02/12 was negative with negative hr-HPV. Pap done. Venereal d isease screening 488865754 Z11.3 RTO one week for results. Screening for malignant neoplasm of breast 797553610 Z12.31 Positive s creening for depression on PHQ-9 (Patient Health Questionnaire 9) 3031800310 19854 Z13.89 Pt. does feel she would benefit from seeing a psychiatri st. Referral generated. Several months to get in to see a psychiatri st discussed. Option of walking in to [facility] discussed. Pt. knows of [facility] and its location. She will do that if needed. [id number] [facility] [address] [place] [address] 09/13/2017 13:56:57 09/15/2017 11:51:03 Gynecologic examination 55677895 Z01.419 Pap done 09/06/17 was negative with negative hr-HPV, dwp. Venereal d isease screening 428306848 Z11.3 Vaginal culture was negative for gonorrhea, chlamydia, and trichomona s, dwp. STD panel was also completely negative. Individual test results dwp. [id number] MD Olga Carpiohalto (BOOM PUMP OPERATOR) [address] [place] [address] 04/25/2019 15:18:51 04/26/2019 09:08:05 Gynecologic examination 06176065 Z01.419 Last pap done 09/06/17 was negative with negative hr-HPV. Therefore, no pap needed. Venereal d isease screening 006883897 Z11.3 RTO one week for results. Screening for malignant neoplasm of breast 130141180 Z12.31 Last mammogram 2012. Mammogram ordered. [id number] [facility] [address] [place] [address] 05/07/2019 14:08:44 05/08/2019 10:19:53 Venereal disease screening 688226786 Z11.3 Vaginal culture was negative for gonorrhea, chlamydia, and trichomona s, dwp. STD panel was also completely negative. Individual test results dwp. Screening for malignant neoplasm of breast 721576091 Z12.31 Mammogram done 04/30/19. Results not in chart and pt. has not received any communicat ion about the results. Will obtain result and call pt., dwp. [id number] MD Tami Tamez (Adult Med) [address] [place] [address] 05/30/2019 11:44:55 06/05/2019 10:40:30 Adult health examination 253805867 Z00.01 Encouraged routine SENIOR SERVICE AIDE, vision, dental exams, well balanced diet. Allergic r eaction to insect bite 590035487 T78.40XD allergy as child, has not been stung since but needs epi pen rx Prehypertension 31784534 9 R03.0 last vitals at ob/gyne bp elevated, encouraged pt to check, will also screen at in office visit in fall or sooner if needed [id number] MD Tami Tamez (Adult Med) [address] [place] [address] 01/16/2020 08:37:50 01/17/2020 14:59:36 Hyperlipidemia 23678075 E78.5 cholestero l is elevated, dwp diet changes advised-re duce fried fatty foods, increase fiber, increase veggies and activity level Influenza vaccination declined 993489351 Z28.21 Prehypertension 75143606 9 R03.0 last vitals at ob/gyne bp elevated, encouraged pt to check, will also screen at next in office visit or sooner if needed, advised checking at home [id number] MD Tami Tamez (Adult Med) [address] [place] [address] 05/14/2020 15:27:10 05/15/2020 10:40:37 Elevated blood-pressure reading without diagnosis of hypertension 992273504 R03.0 BP in pre-hypert ensive range, dwp risk, reducing salt and increasing exercise check bp when able History an d physical examination, pre-employment 110915383 Z02.1 form completed, will hold pending ppd results Tuberculos is screening 431341605 Z11.1 Overweight 612563658 E66 .3 advised low fat, low cholestero l diet, regular exercise and weight reduction. [id number] MD Tami Tamez (Adult Med) [address] [place] [address] 06/12/2020 15:46:43 06/13/2020 08:19:35 Overweight 110811574 E66.3 advised low fat, low cholestero l diet, regular exercise and weight reduction. Essential hypertension 08647326 I10 remains elevated, will start hctz and order cuff for home use [id number] Elida Gu APN, BALJINDER Garrett (Adult Med) [address] [place] [address] 10/02/2020 10:20:18 10/06/2020 15:56:08 Acute sinusitis 06745515 J01.90 sinus pressure with purulent drainage, start augmentin bid, medrol dose pack as well, [id number] MD Tami Tamez (Adult Med) [address] [facility] [place] [address] 04/26/2022 15:50:55 04/29/2022 17:26:14 Adult health examination 555110680 Z00.01 Encouraged routine SENIOR SERVICE AIDE, vision, dental exams, well balanced diet. Essential hypertension 60832997 I10 remains elevated, will start hctz- pt ran out and never requested refills or has f/u, -resume medication Pain of le ft hip joint 0722478079 53498 M25.552 since fall 6 months ago, pain to left side only, will get xray, cont otc pain relief Overweight 845757302 E66 .3 advised low fat, low cholestero l diet, regular exercise and weight reduction. [id number] MD Tami Tamez (Adult Med) [address] [place] [address] 02/27/2024 16:51:19 03/02/2024 12:46:32 Administration of diphtheria, pertussis, and tetanus vaccine [id number] Z23 [id number] MD Tami Tamez (Adult Med) [address] [place] [address] 03/06/2024 11:46:58 03/13/2024 11:10:24 Essential hypertension 85199471 I10 remains elevated, will start hctz- pt ran out and never requested refills or had f/u, -resume medication Removal of suture [id number] 01 Z48.02 8.5 sutures removed, one tiny knot unable to remove on index finger, pt will return in 2 days to have removed, advised skin care Puncture w ound of skin [id number] T14.8XXA left index and middle fingers, day 10 now;suture s intact, no redness or drainage from wounds Dog bite of hand [id number] 06 S61.452A tdap given last week in office here as ER did not give [id number] MD Tami Tamez (Adult Med) [address] [place] [address] 03/08/2024 13:42:01 03/13/2024 12:22:58 Removal of suture [id number] Z48.02 8 sutures removed, one tiny knot unable to remove on index finger, pt will return in 2 days to have removed, advised skin care update- last suture removed without issue Health Concerns Section Related Observation LastModified by Organization Detai ls LastModified Time None Recorded Concern Status LastModified by Organization Details LastModified Time None Recorded Advance Directives Directive N: Payers Insurance Date Sequence Insurance Name Policy Number Policy Riggins Covered Member ID Riggins Member ID Guarantor Name 05/07/2019 SLIDING FEE SCHEDULE - DISCOUNT Davida Null 01/16/2020 1 *SELF PAY* Adeola marroquin Null 02/27/2024 [facility] (MEDICAID HMO) [id number] Davida Null [id number] Davida Null 02/27/2024 1 [facility] Davida Null [id number] Davida Null 04/26/2022 SLIDING FEE SCHEDULE - DISCOUNT Davida Null 01/16/2020 2 *SELF PAY* Adeola marroquin Null 02/27/2024 1 [facility] (MEDICAID HMO) Davida Null [id number] Davida Null 02/27/2024 1 [employer] [facility] [place] [facility] ON OR AFTER 01/15/2020 (MEDICAID REPLACEMENT - HMO) Davida Null [id number] Davida Null 02/27/2024 1 [facility] PRIOR TO 08/14/2020 (MEDICAID REPLACEMENT - HMO) Davida Null [id number] Davida Null 02/27/2024 1 [place] [id number] Davida Null [id number] Davida Null Notes Date Note Type Note Provider Name and Address Organization Details Recorded Time 10/02/2020 text/html Sinusitis/Allerg yRe ported bypatient.Associate d Symptoms:no fever; no weight loss; no hemoptysis; no hematemesis; no difficulty breathing; no feeling of strangulation; no nausea or vomiting; no facial pain; no sore throat; not constantly clearing the throat; no nasal discharge; no ear fullness; no nasal itching; no eye itching; no pain behind the eyes; no skin itching;headache cheek;sinus pain nasal;thick phlegm in throat;nasal discharge;nasal passage blockage right Onset/Timing:recurr ing; worse in pm; occurs during particular seasons of the year ; initially started 6months ago; progressively worse over last 1months Quality:no pain; no itching; minimal discomfort Duration:symptoms usually last 2 weeks; occurs sporadically; had 1 sinus infections treated with antibiotics in the last year Context:no recent upper respiratory infection; no recent sick contacts; not worse around dust; not worse around molds; not worse with environmental exposure; not worse when mowing grass; not worse with certain foods; not worse with odors;worse with seasonal allergen exposure Risk Factors:no history of smoking; no history of asthma;family history of allergies Alleviating factors:relief with antibiotics; relief with nasal steroidNotes:pt has been congested and it's been worse over the past month, pt is experiencing green mucus from Rt side Elida Gu APN, CAL-C Attn: [address] [place], [address], [facility] 10/02/2020 13:48:20 04/26/2022 text/html work physical. 6 months pt states she was walking her dog and her dog took off and drug her and she landed on her left side. since then she's had pain and sometimes pain shoots down the whole leg; Elida Gu APN, CAL-C Attn: [address] [place], [address], [facility] 04/26/2022 22:04:55 02/27/2024 text/html Pt here for Tdap after sustaining dog bite and being treated in the ER 2 days ago Codi Colmenares MA [place], [place] - [facility] 02/27/2024 17:57:12 03/06/2024 text/html suture removal. got bit by her own dog while trying to feed them treats.had sutures in left middle finger and index. all together 9 stitches. Elida uG, REGULATORY AGENCY DIRECTOR, NEWSPAPER REPORTER-C Attn: Accounting[address], [place], [address], [facility] 03/06/2024 12:48:15 03/08/2024 text/html pt here to have remaining suture removed,no c/o Elida Gu, REGULATORY AGENCY DIRECTOR, NEWSPAPER REPORTER-C Attn: Account[address], [place], [address], [facility] 03/08/2024 14:03:35 OBGyn Episode Ob Episode Information Episode Created Date Number of Fetuses Patient Bloodtype Patient rh Status Prepregnancy Weight lbs Domestic Partner Domestic Partner Phone Father Name Java Web Architect Status 09/26/19 15 1 CLOSED Fetus Data First Name Last Name Admitted to NICU Weight (g) Sex Living Outcome Pediatric Complications Fetus ID Race Codes Race Delivery Type 4055.11 248 M Full Term [id number] Vaginal Kevin Calculation Initial Kevin Date Initial Exam Date Initial Exam Provider Initial Ultrasound Date Last Menstrual Period Date Ultra Sound Weeks Gestation 0 Eighteen To Twenty Week Kevin Update Ultra Sound Date Fundal Height At Umbil Quickening Date Ultra Sound Latest Weeks Gestation Final Kevin Confirmed By Final Kevin Confirmed Date Final Kevin Date Ultra Sound Latest Days Gestation 0 0 Menstrual History Last Menstrual Date Menses Monthly On Bcp Conception Prior Menses Frequency Hcg Plus Date Menarche Onset Age Delivery Information Delivery Date Delivery Type Labor Anesthesia Weeks Gestation Incision Type Labor Labor Length Hrs Delivered By Post Complications Tubal Sterilization Discharge Date Comments 9 Discharge Information Feeding Method Contraceptive Method Maternal HG B and HCT Levels Ob Episode Information Episode Created Date Number of Fetuses Patient Bloodtype Patient rh Status Prepregnancy Weight lbs Domestic Partner Domestic Partner Phone Father Name Java Web Architect Status 09/26/19 15 1 CLOSED Fetus Data First Name Last Name Admitted to NICU Weight (g) Sex Living Outcome Pediatric Complications Fetus ID Race Codes Race Delivery Type 3655.95 152 F Full Term [id number] Vaginal Kevin Calculation Initial Kevin Date Initial Exam Date Initial Exam Provider Initial Ultrasound Date Last Menstrual Period Date Ultra Sound Weeks Gestation 0 Eighteen To Twenty Week Kevin Update Ultra Sound Date Fundal Height At Umbil Quickening Date Ultra Sound Latest Weeks Gestation Final Kevin Confirmed By Final Kevin Confirmed Date Final Kevin Date Ultra Sound Latest Days Gestation 0 0 Menstrual History Last Menstrual Date Menses Monthly On Bcp Conception Prior Menses Frequency Hcg Plus Date Menarche Onset Age Delivery Information Delivery Date Delivery Type Labor Anesthesia Weeks Gestation Incision Type Labor Labor Length Hrs Delivered By Post Complications Tubal Sterilization Discharge Date Comments 5 Discharge Information Feeding Method Contraceptive Method Maternal HG B and HCT Levels Ob Episode Information Episode Created Date Number of Fetuses Patient Bloodtype Patient rh Status Prepregnancy Weight lbs Domestic Partner Domestic Partner Phone Father Name Java Web Architect Status 09/26/19 15 1 CLOSED Fetus Data First Name Last Name Admitted to NICU Weight (g) Sex Living Outcome Pediatric Complications Fetus ID Race Codes Race Delivery Type 3714.91 848 F Full Term [id number] Vaginal Kevin Calculation Initial Kevin Date Initial Exam Date Initial Exam Provider Initial Ultrasound Date Last Menstrual Period Date Ultra Sound Weeks Gestation 0 Eighteen To Twenty Week Kevin Update Ultra Sound Date Fundal Height At Umbil Quickening Date Ultra Sound Latest Weeks Gestation Final Kevin Confirmed By Final Kevin Confirmed Date Final Kevin Date Ultra Sound Latest Days Gestation 0 0 Menstrual History Last Menstrual Date Menses Monthly On Bcp Conception Prior Menses Frequency Hcg Plus Date Menarche Onset Age Delivery Information Delivery Date Delivery Type Labor Anesthesia Weeks Gestation Incision Type Labor Labor Length Hrs Delivered By Post Complications Tubal Sterilization Discharge Date Comments 8 Discharge Information Feeding Method Contraceptive Method Maternal HG B and HCT Levels
[2024-08-28 13:16] VITALS: BP 128/88; PULSE 143; RESP 20; TEMP 37.1; O2SAT 100
--- NOTE | 2024-08-28 13:30 | ED.NAVMDI ---
HPI - Nausea/Vomiting/Diarrhea General Chief complaint: Nausea/Vomiting/Diarrhea Stated complaint: Vomiting/Chills/Headache/Dizziness Time Seen by Provider: 08/28/24 13:20 Source: patient and RN notes reviewed Mode of arrival: ambulatory Limitations: no limitations History of Present Illness HPI Narrative: 48-year-old female Presents Express Care complaining of nausea, vomiting, diarrhea for 2 days. Patient denies any abdominal pain, fevers, body aches, chills. Patient last vomited approximately 2-3 hours ago. Patient has been able to keep some fluids down since vomiting Patient reports brown watery diarrhea. Patient denies any blood or mucus in stools. Patient has not tried any [id number] for relief. Patient denies recent travel outside the country. Patient also reports being dizzy and lightheaded today. Patient feels like her heart is racing as well. Patient denies any significant past medical history. Related Data Home Medications ?Medication ?Instructions ?Recorded ?Confirmed ?Last Taken ?Type No Home Medications 02/18/23 08/28/24 Unknown History Allergies Allergy/AdvReac Type Severity Reaction Status Date / Time No Known Allergies Allergy Verified 08/28/24 13:16 Review of Systems Review of Systems: CONSTITUTIONAL: Denies fever, chills, body aches, or sweats. EYES: Denies visual changes, redness, or discharge. ENT: Denies rhinorrhea, congestion, sore throat, or otalgia. CARDIOVASCULAR: Denies chest pain, palpitations, or edema. Positive for dizziness and lightheadedness. RESPIRATORY: Denies cough or dyspnea. GASTROINTESTINAL: Denies abdominal pain, bloody stools, hematochezia. Positive for nausea, vomiting, or diarrhea. GENITOURINARY: Denies dysuria or hematuria. SKIN: Denies rash or itching. MUSCULOSKELETAL: Denies back pain, joint pain, or myalgia. NEUROLOGIC: Denies headache, loss of consciousness, numbness, or weakness. PSYCHIATRIC: Denies anxiety or depression. All other systems reviewed are negative, except as documented in HPI. [facility] Past Medical History Medical History UTI (urinary tract infection) Bronchitis Surgical History Surgical History History of tubal ligation Family History Family History Father Hypertension Malignant neoplasm of prostate Mother Asthma Sibling Asthma Social History Social History Smoking status: Never smoker Second hand tobacco smoke exposure: Yes Alcohol intake: current Alcohol use details: occasional Substance use: never Living arrangements: with family Occupation/Education: occupation Gender identity (if verbalized by the patient): Female Exam Narrative: GENERAL: This is a well-nourished, well-developed adult, in no apparent distress. They are non ill-appearing, nontoxic appearing. HEAD: normocephalic, atraumatic. EYES: Sclera clear/white. Vision is grossly intact. Conjunctiva normal bilaterally. Extraocular movements intact. EARS: External ears normal, Hearing grossly intact. NOSE: External nose normal THROAT: Mucous membranes are dry. NECK: Normal range of motion CARDIOVASCULAR: Tachycardic rate and rhythm. Systolic murmur is heard at the right upper sternal border 2/6. No clicks, gallops, rubs. RESPIRATORY: Respiratory rate normal, respiratory effort nonlabored, no respiratory distress GASTROINTESTINAL: Abdomen soft, flat, non-tender, nondistended. Bowel sounds are hyperactive. No hepato-splenomegaly, or palpable masses. No guarding or rigidity. No rebound tenderness. SKIN: warm, Dry, intact with no suspicious lesions or rash, good texture and turgor. NEURO: awake, alert, and oriented to person, place and time. There were no obvious focal neurologic abnormalities. EXTREMITIES: No joint tenderness, effusion, or edema noted. BACK: Nontender without deformity. Course Course Emergency Course: Portions of this record may have been created with voice recognition software Level of Care: Express Care Visit Vital Signs Vital signs: Vital Signs Temperature 98.8 F 08/28/24 13:16 Pulse Rate 143 H 08/28/24 13:16 Respiratory Rate 08/28/24 13:16 Blood Pressure 128/88 08/28/24 13:16 Pulse Oximetry 100 08/28/24 13:16 Oxygen Delivery Room Air 08/28/24 13:16 Temperature 98.8 F 08/28/24 13:16 Pulse Rate 143 H 08/28/24 13:16 Respiratory Rate 08/28/24 13:16 Blood Pressure 128/88 08/28/24 13:16 Pulse Oximetry 100 08/28/24 13:16 Oxygen Delivery Room Air 08/28/24 13:16 Transfer Transfered to: [facility] Transportation: Other (Private vehicle) Transfer rationale: Nausea, vomiting, diarrhea, signs of dehydration, tachycardic patient required higher level care Accepting physician: Dr. Nix MDM - Nausea/Vomiting/Diarrhea MDM Narrative Medical decision making narrative: No peritoneal findings on exam. Patient's EKG shows sinus tachycardia with nonspecific T-wave changes. No ischemic findings. Patient has dry mucous membranes. No chest pain or shortness of breath. Patient does report some palpitations. Likely patient has dehydrated from vomiting and diarrhea. Given patient's symptoms, it is recommend the patient seek a higher level care and proceed immediately to the emergency department. Patient is agreeable to go to [facility] ER call over to [facility] ER and spoke with Jonathon RN who is aware this patient and Dr. Nix who accepted this patient for transfer. Patient advised to remain NPO and proceed immediately to the ER. Differential Diagnosis Differential diagnosis: Likely traveler's diarrhea, food poisoning, gastroenteritis and other (Small-bowel obstruction, acute kidney injury, dehydration) ECG Data EKG #1: Attestation: I personally reviewed and interpreted this ECG as follows: ECG completion date: 08/28/24 ECG completion time: 13:13 Prior ECG tracings: not available for review EKG Interpretation: tachycardia, sinus rhythm, no ST changes, normal QRS, normal QT, NL axis and other (Nonspecific T-wave abnormalities) Discharge Plan Discharge Clinical Impression: Nausea vomiting and diarrhea, Tachycardia Patient Disposition: Acute Care Hospital Condition: Stable Patient Language: Maltese Prescriptions: No Action No Home Medications Follow-up/Referrals: Batres,Elida Lopez APN [Primary Care Provider] - Time of Disposition: 13:30
--- NOTE | 2024-08-28 13:34 | ECG_ITS ---
Test Date: 2024-08-28 13:13:49 Measurements Intervals Henry Rate: 137 P: 39 DE: 134 QRS: 57 QRSD: 69 T: 264 QT: 259 QTc: 392 Interpretive Statements SINUS TACHY[address] DEVIATION AND MODERATE T-WAVE ABNORMALITY, CONSIDER LATERAL ISCHEMIA [-0.1+ mV T WAVE IN I/aVL/V5/V6] ST DEVIATION AND MODERATE T-WAVE ABNORMALITY, CONSIDER INFERIOR ISCHEMIA [-0.1+ mV T WAVE IN II/aVF] WARNING: DATA QUALITY MAY AFFECT INTERPRETATION No previous ECG available for comparison Electronically Signed On 08-29-2024 12:31:13 CDT by Kg Mcnulty M.D.
== END 2024-08-28 13:40 | disposition short-term general hospital (02) ==
PROVIDERS: PCP Nurse Practitioner Family
DX: R11.2 Nausea with vomiting, unspecified (principal); R19.7 Diarrhea, unspecified; R00.0 Tachycardia, unspecified
CPT/HCPCS: 93005; 99213; G0463